=== PATIENT | female | born 1935 | race Caucasian/White ===

== ENCOUNTER 2021-11-21 07:57 | Day surgery (SDC) | payer MEDICARE ==
[2021-11-21] VITALS (12 sets, daily range): BP systolic 107–172; BP diastolic 56–96
[~2021-11-21] VITALS: Ht 167.6 cm; Wt 77.7 kg
[2021-11-21] MEDS ORDERED: dextrose 50%-water 50ml dispensing syringe IV PRN ×2 (08:20)
[2021-11-21] MEDS ORDERED: nitroGLYCERIN 0.4mg SUBLingual tab SL PRN ×2 (08:20→11:45)
[2021-11-21] MEDS ORDERED: DEXTROSE 15 GM of carb/4 tabs (each vial/BOTTLE has 4 tablets) PO PRN ×2 (08:20)
[2021-11-21] MEDS ORDERED: normal saline 1000ml 1,000 ML IV SCH ×2 (08:20→11:45)
[2021-11-21] MEDS ORDERED: glucagon, human recombinant 1mg kit SUBCUT PRN (08:20)
[2021-11-21] MEDS ORDERED: diphenhydrAMINE 25mg capsule PO PRN (08:20)
[2021-11-21] MEDS ORDERED: MESSAGE TO PHARMACY PO ONE (08:20)
[2021-11-21] MEDS ORDERED: LORazepam 0.5 MG tablet PO PRN (08:20)
[2021-11-21] MEDS ORDERED: insulin Lispro (HumaLOG) vial - multi-dose SQ SCH (08:20)
[2021-11-21] MEDS ORDERED: LOSA50TA64 PO (08:32)
[2021-11-21] MEDS ORDERED: CYCL-1 PO (08:32)
[2021-11-21] MEDS ORDERED: METF-1203 PO (08:32)
[2021-11-21] MEDS ORDERED: INSU100I25 SQ (08:32)
[2021-11-21] MEDS ORDERED: HYDR12.55 PO (08:32)
[2021-11-21] MEDS ORDERED: ATOR-2 PO (08:32)
[2021-11-21] MEDS ORDERED: NOVLG SQ (08:32)
[2021-11-21] MEDS ORDERED: METO200T49 PO (08:32)
[2021-11-21] MEDS ORDERED: NAPR-1170 PO (08:35)
[2021-11-21] MEDS ORDERED: ALB0.5UD IH (08:35)
[2021-11-21] MEDS ORDERED: ALBU8HFA PO (08:35)
[2021-11-21] MEDS ORDERED: iohexol 350 MG/ML 50ML vial IV ONE (10:07)
[2021-11-21] MEDS ORDERED: midazolam 1 mg/ML 2ml injection ONE (10:07)
[2021-11-21] MEDS ORDERED: fentaNYL/PF 50MCG/1 ML 2ML syringe ONE (10:07)
[2021-11-21] MEDS ORDERED: LIDOCAINE 1% w/preservative (10 MG/ML) inj. 10mL VIAL ONE ×2 (10:07→10:08)
[2021-11-21] MEDS ORDERED: iohexol 350MG/ML 100ml bottle IV ONE (10:07)
[2021-11-21] MEDS ORDERED: metoprolol tartrate 1mg/ml inj IV ONE (10:51)
[2021-11-21] MEDS ORDERED: nitroGLYCERIN-Tridil 50MG/D5W 250 ML IV ONE (10:54)
[2021-11-21] MEDS ORDERED: losartan 50mg tablet PO SCH ×2 (11:35→11:47)
[2021-11-21] MEDS ORDERED: metoprolol succinate 25mg (24-HOUR) SR. Tablet PO ONE ×2 (11:35→11:56)
[2021-11-21] MEDS ORDERED: proCHLORperazine 10 MG/2 ml inj IV PRN (11:45)
[2021-11-21] MEDS ORDERED: HYDROcodone/acetaminophen 5mg/325mg tablet PO PRN (11:45)
[2021-11-21] MEDS ORDERED: HYDROcodone/acetaminophen 10/325mg tab PO PRN (11:45)
[2021-11-21] MEDS ORDERED: OXAZEpam 15mg capsule PO PRN (11:45)
[2021-11-21] MEDS ORDERED: ondansetron/PF 4mg/2ml inj IV PRN (11:45)
[2021-11-21] MEDS ORDERED: losartan 50mg tablet PO ONE (11:47)
[2021-11-21] MEDS ORDERED: insulin glargine (Lantus) pen - multi-dose SQ SCH (21:00)
== END 2021-11-21 18:00 | disposition home or self-care (01) ==
LOC: SSTAY O 07:57
PROVIDERS: ATTEND Internal Medicine Cardiovascular Disease
DX: R94.39 Abnormal result of other cardiovascular function study (principal); I25.119 Atherosclerotic heart disease of native coronary artery with unspecified angina pectoris; I10 Essential (primary) hypertension; E78.5 Hyperlipidemia, unspecified; E11.9 Type 2 diabetes mellitus without complications; M19.90 Unspecified osteoarthritis, unspecified site; J44.9 Chronic obstructive pulmonary disease, unspecified; Z87.891 Personal history of nicotine dependence; Z79.899 Other long term (current) drug therapy; Z88.0 Allergy status to penicillin; Z88.1 Allergy status to other antibiotic agents; Z88.2 Allergy status to sulfonamides; Z88.5 Allergy status to narcotic agent; Z96.651 Presence of right artificial knee joint; Z98.890 Other specified postprocedural states; Z90.710 Acquired absence of both cervix and uterus
CPT/HCPCS: 36415; 82948; 83036; 93005; 93458; 99152; 99153; C1760; C1769; J1644; J2250; J3010; J3490; J7030; Q0163; Q9967; A4620; A6258; J1815